=== PATIENT | female | born 1940 | race Caucasian/White ===

== ENCOUNTER → 2017-02-27 | Outpatient (CLI) | payer OTHER | LOC: BMCIMAGING 10:27 | PROVIDERS: ATTEND Internal Medicine | DX: Z13.820 Encounter for screening for osteoporosis (principal); M85.80 Other specified disorders of bone density and structure, unspecified site ==

== ENCOUNTER → 2017-05-21 | Outpatient (CLI) | payer OTHER | LOC: FIMAGING 09:42 | PROVIDERS: ATTEND Internal Medicine | DX: Z12.31 Encounter for screening mammogram for malignant neoplasm of breast (principal); Z80.3 Family history of malignant neoplasm of breast | CPT/HCPCS: G0202 ==

== ENCOUNTER → 2017-05-21 | Outpatient (CLI) | payer OTHER | LOC: BHFA 10:45 | PROVIDERS: ATTEND Internal Medicine Cardiovascular Disease | DX: I35.1 Nonrheumatic aortic (valve) insufficiency (principal); I34.0 Nonrheumatic mitral (valve) insufficiency ==

== ENCOUNTER 2017-11-15 10:36 | Observation (INO) | payer OTHER ==
--- NOTE | 2017-11-15 10:48 | CPEKG ---
Heart Rate: 57 RR Interval: 1053 P-R Interval: 172 QRSD Interval: 78 QT Interval: 432 QTC Interval: 421 P Cashiers: 66 QRS Cashiers: 16 T Wave Cashiers: 74 EKG Severity - NORMAL ECG - EKG Impression: SINUS RHYTHM Electronically Signed By: Juana Mercer 15-Nov-2017 16:26:23
[2017-11-15] MEDS ORDERED: NS 1,000 ML IV ONE (10:50)
--- NOTE | 2017-11-15 10:56 | EDPHY ---
H & P Stated Complaint: syncope x2 Source: Patient, RN/MD, EMS Exam Limitations: No limitations - Personal History Current Tetanus/Diphtheria Vaccine: Yes Current Tetanus Diphtheria and Acellular Pertussis (TDAP): Yes - Medical/Surgical History Hx Asthma: No Hx Chronic Respiratory Disease: No Hx Diabetes: No Hx Cardiac Disease: No Hx Renal Disease: No Hx Cirrhosis: No Hx Alcoholism: No Hx HIV/AIDS: No Hx Splenectomy or Spleen Trauma: No Other PMH: PMH: low BP, "leaky heart valve". - Social History Smoking Status: Never smoked Time Seen by Provider: 11/15/17 10:52 HPI/ROS: HPI: Chief Complaint: Syncope and collapse x2 Location:body Quality: Syncope Duration: Prior to right Signs and Symptoms: No fever, + dizziness, no cough, no chest pain, no shortness of breath, no palpitation, no abdominal pain, no nausea, no vomiting Timing: Acute, occurred 2 times, lasting several seconds Severity: Moderate Context: Patient presents via EMS with witnessed syncope and collapse x 2 [place]. She reports that she remembers pain the paginator and then waking up and sitting in a chair and being confused. She said after of few minutes and felt better. She then walked around, started to feel lightheaded and dizzy like she was in a fog, and then had a witnessed episode as well. Patient is unsure of how long the syncopal episodes lasted. Reports that she ate breakfast today but probably not as much as that she should up. She has a "leaky valve disorder" that she follows with Dr. Cesilia Conway; recently saw her and had an echocardiogram performed and per patient noted some changes but was advised that she could come back in 1 year for a checkup. She has no history of acute myocardial infarction/CVA. She reports that she feels fine and has no complaints currently. EMS gave patient aspirin on route and telemetry noted V1 T depression, nonspecific ST changes in leads V2 and V3. Modifying Factors: None Comment: ROS: see HPI Constitutional: No fever, no chills, no weight loss Eyes: No blurred vision Respiratory: No shortness of breath, no cough Cardiovascular: No chest pain Gastrointestinal: No nausea, no vomiting, no diarrhea Genitourinary: No dysuria Extremities: No myalgias Neurologic: No weakness, no numbness Skin: No rashes Hematologic: No bruising, no bleeding MEDICAL/SURGICAL/SOCIAL HISTORY: Medical history: Low blood pressure and leaky heart valve Surgical history: Denies Social history: Retired. Active lifestyle. Family history noncontributory CONSTITUTIONAL: Extremely pleasant, appears younger than stated age, elderly white female, awake and alert, no obvious distress HEENT: Atraumatic and normocephalic, PERRL, EOMI. Tympanic membranes clear. Oropharynx clear, no exudate and moist pink mucosa. Airway patent. No lymphadenopathy. No meningismus. No carotid bruits. Cardiovascular: Normal S1/S2, regular rate, regular rhythm, without murmur rub or gallop. PULMONARY/CHEST: Symmetrical and nontender. Clear to auscultation bilaterally. Good air movement. No accessory muscle usage. ABDOMEN: Soft, nondistended, nontender, no rebound, no guarding, no peritoneal signs, no masses or organomegaly. No CVAT. EXTREMITIES: 2/2 pulses, strength 5/5, no deformities, no clubbing, no cyanosis or edema. NEUROLOGICAL: no focal neuro deficits. GCS 15. Cranial nerves 2-12 grossly intact. SKIN: Warm and dry, no erythema. no rash. Good capillary refill. (Carol Melara) Constitutional: Initial Vital Signs Temperature (C) 36.5 C 11/15/17 10:43 Heart Rate 78 11/15/17 10:43 Respiratory Rate 12 11/15/17 10:43 Blood Pressure 131/62 H 11/15/17 10:43 O2 Sat (%) 94 11/15/17 10:43 O2 Delivery Mode Room Air Allergies/Adverse Reactions: No Known Allergies Allergy (Unverified 11/15/17 10:46) Home Medications: Medication Instructions Recorded Acetaminophen [Tylenol 325mg (*)] 325 mg PO DAILY PRN 11/15/17 Aspirin [Aspirin 325 mg (*)] 325 mg PO Q2D 11/15/17 Cholecalciferol Vit D3 [Vitamin D3 1,000 units PO DAILY 11/15/17 (*)] Compounded Testosterone Crm 1 sohail TP DAILY 11/15/17 Estradiol [Vivelle-Dot 0.05MG (*)] 0.05 mg TD TuFr@0800 11/15/17 Gabapentin [Neurontin 100 MG (*)] 100 mg PO HS 11/15/17 Herbals/Supplements -Info Only 1 ea PO DAILY 11/15/17 Imipramine HCl 5 mg PO DAILY 11/15/17 Melatonin [Melatonin 3 MG (*)] 3 mg PO HS 11/15/17 Sertraline HCl [Zoloft 100mg (*)] 100 mg PO DAILY 11/15/17 Medical Decision Making ED Course/Re-evaluation: EKG, head CT scan, labs, IV fluids ordered Given 1 L normal saline and IV Zofran Chart review; unable to pull up echocardiogram report. 1110: FSBS 85. EKG upon arrival shows flattened T-wave in V1; nonspecific ST changes in V2 V3 Head CT scan my read shows no acute intracranial process; mild atrophy consistent with age Labs reviewed; unremarkable troponin. No signs of anemia/acute kidney injury/ electrolyte imbalance/elevated LFTs ED decision to consult for admission. History of valvular disease with concern for EKG changes and known valve disease. This patient was seen under the supervision of my secondary supervising physician. I evaluated care for this patient independently. Discussed this patient with Dr. Mercer who did see the patient. (Carol Melara) Differential Diagnosis: Syncope including but not limited to vasovagal syncope, arrhythmia, dehydration , and blood loss. (Carol Melara) Other Provider: I have evaluated and participated in the management of this patient. My co- signature indicates that I have reviewed this chart and that I agree with the findings and the plan of care as documented. My personal history and physical findings include: This is a generally healthy 76-year-old female who had 2 witnessed syncopal episodes while buying lumbar. No seizure activity was noted. She did not injure herself, as she was lowered to the ground both times. No preceding chest pain. She does describe feeling extremely weak prior to both episodes. No recent illnesses. On examination she is awake and alert. Head is normocephalic atraumatic. Neck is nontender to palpation over the cervical spine. Lungs are clear to auscultation. Heart is regular rate and rhythm. Neurologically she is oriented to person, place, time, and situation. JEANIE. EOMI. Facial expression symmetric. Tongue midline. Moving all 4 extremities easily and equally. I reviewed her EKG. I have reviewed her laboratory studies. I agree with hospitalization and continued cardiac monitoring. She has no history of cardiac arrhythmia and none has been noted in the emergency department. I do not suspect an acute coronary syndrome. There is nothing to suggest blood loss her dehydration. Vasovagal syncope is a possibility and her prodrome suggest that this might be the case. (Juana Mercer) - Data Points Laboratory Results: Laboratory Results 11/15/17 10:35 11/15/17 10:35 11/15/17 10:58 POC Glucose 85 mg/dL mg/dL (70-100) Medications Given: Gabapentin (Neurontin) 100 mg PO HS SUNNI Stop: 05/14/18 20:59 Last Admin: 11/15/17 19:49 Dose: 100 mg Melatonin (Melatonin) 3 mg PO HS SUNNI Stop: 05/14/18 20:59 Last Admin: 11/15/17 19:49 Dose: 3 mg Discontinued Medications Sodium Chloride (Ns) 1,000 mls @ 0 mls/hr IV ONCE ONE; Wide Open PRN Reason: Protocol Stop: 11/15/17 10:51 Last Admin: 11/15/17 11:52 Dose: 1,000 mls Ondansetron HCl (Zofran) 4 mg IVP EDNOW ONE Stop: 11/15/17 10:59 Last Admin: 11/15/17 11:53 Dose: Not Given Point of Care Test Results: 11/15/17 10:58 POC Glucose 85 Departure - Departure Disposition: [facility] [place] Inpatient Acute Clinical Impression: Syncope and collapse, Acute electrocardiogram changes, Valvular heart disease Condition: Fair
[2017-11-15] MEDS ORDERED: ONDANSETRON 4 MG/2 ML VIAL IVP ONE (10:58)
[2017-11-15 10:59] LABS: PLATELET COUNT 269 10^3/uL (150-400)
[2017-11-15 11:15] LABS: INR 1.03 (0.83-1.16); PROTIME(PATIENT) 13.7 SEC (12.0-15.0)
[2017-11-15] MEDS ORDERED: ACETAMINOPHEN 325 MG TAB PO PRN (12:47)
[2017-11-15] MEDS ORDERED: ONDANSETRON 4 MG/2 ML VIAL IVP PRN (12:47)
[2017-11-15] MEDS ORDERED: ONDANSETRON DISINTEGRATING 4 MG TAB PO PRN (12:47)
--- NOTE | 2017-11-15 13:28 | GHP ---
[f rep st] HISTORY AND PHYSICAL DATE OF ADMISSION: 11/15/2017 HISTORY OF PRESENT ILLNESS: The patient is a pleasant 76-year-old female with a history of regurgita nt valves, who was purchasing some lumber today when she had a syncopal episode. She was loading dana e lumber, during which time she had no dyspnea, no chest pain, no other symptoms. She was standing i n line to pay for it when she felt lightheaded and dizzy and sat down. Then she recalls waking up, a nd then she was walking, and she had a second episode of passing out. She has not had antecedent herberth st pain. She has had no recent nausea, vomiting, diarrhea. She does not have a history of coronary disease. She is followed by Dr. Conway for regurgitant valvular lesion; she was not sure which. She does not vieira ve heart failure. She has no orthopnea or lower extremity edema. She has not had fever, chills, pino sea, vomiting, diarrhea. She did not have palpitations prior to, during, or after her syncope. She has no prior episodes of s yncope, except for 1 many years ago, with what sounds like a benign workup. REVIEW OF SYSTEMS: A complete 10-point review of systems was conducted, negative, except as noted in the HPI. PAST MEDICAL HISTORY: She has moderate MR, moderate TR, moderate aortic regurgitation. She has art model bradford kidney disease with a baseline creatinine of about 1.1. She has low back pain. ALLERGIES: Penicillins. HOME MEDICATIONS: Tylenol, aspirin, vitamin D3, testosterone cream, estradiol, gabapentin, imipramin e, melatonin, sertraline. SOCIAL HISTORY: She is originally from the [facility], lived in [place] before moving to the [facility] Nonsmoker, nondrinker. FAMILY HISTORY: Notable for cancers. PHYSICAL EXAMINATION: VITAL SIGNS: Temp 36.5, blood pressure 131/60, pulse 78, breathing 12 times a minute, 94% on room air. Orthostatic vital signs are negative. GENERAL: No acute distress. HEENT : Sclerae anicteric. Oropharynx clear. Mucous membranes are moist. NECK: Supple, without lymphad enopathy or JVD. LUNGS: Clear to auscultation bilaterally. HEART: S1, S2. ABDOMEN: Soft, nonten joey, nondistended. LOWER EXTREMITIES: Without edema. Calves are nontender. SKIN: Without rash. NEUROLOGIC: Exam is nonfocal. LABORATORY DATA: Chem-7 is normal, other than a creatinine of 1.1. LFTs normal. Troponin less than 0.012. Coags normal. CBC is normal. EKG interpreted by me shows sinus at 57, with normal axis and intervals. There are no ST or T-wave changes, and this is similar to the rhythm strip that was pres ent from EMS. Noncontrast head CT is unremarkable. I discussed the case with Dr. Juana Mercer and her outpatient pharmaceutical worker, Dr. Cesilia Conway. ASSESSMENT/PLAN: This is a 76-year-old female who presents with syncope. 1. Syncope. This is sort of a benign-sounding history, although it does not clearly fit the descrip tion of a vasovagal. The presence of a prodrome argues against malignant arrhythmia. I think she is not in congestive heart failure and does not appear consistent with acute coronary syndrome. At thi s point in time, I think it is reasonable to cycle her troponins and follow her on telemetry. I do n ot think a stress test is warranted. At this time, she has a history of a negative stress test in past. Her last echo was in June, was showing moderate valvular lesions. I think repeat echo is not indicated. 2. Pulmonary embolism. This is considered, but given the absence of tachycardia, chest pain or hypo fara, will follow. 3. Low back pain. Continue her outpatient medication regimen. 4. Valvular lesions. She can continue to follow up with Dr. Conway as an outpatient. 5. Prophylaxis. Pharmacologic prophylaxis is indicated if in the hospital longer than 24 hours. Fo r now, will proceed with just low-molecular weight heparin. 6. Disposition. Observation. /[id number]/MODL
[2017-11-15] MEDS ORDERED: MELATONIN 3 MG TAB PO SCH (21:00)
[2017-11-15] MEDS ORDERED: GABAPENTIN 100 MG CAP PO SCH (21:00)
[2017-11-16 04:50] VITALS: TEMP 98.2
[2017-11-16 07:50] VITALS: BP 109/69; PULSE 71; RESP 18; O2SAT 96
[2017-11-16] MEDS ORDERED: Herbals/Supplements -Info Only PO SCH (09:00)
[2017-11-16] MEDS ORDERED: [UNRECOGNIZED DRUG - OTHER] TP SCH (09:00)
[2017-11-16] MEDS ORDERED: CHOLECALCIFEROL VIT D3 1,000 UNITS TAB PO SCH (09:00)
[2017-11-16] MEDS ORDERED: SERTRALINE HCL 100 MG TAB PO SCH (09:00)
[2017-11-16] MEDS ORDERED: IMIPRAMINE HCL PO SCH (09:00)
--- NOTE | 2017-11-16 11:18 | HOSPPROG ---
Hospitalist Progress Note Assessment/Plan: 76 yo F w AR, MR, TR admitted w syncope neg workup home see dc summary Subjective: no events telemetry. no complaints Objective: Vital Signs Temp Pulse Resp BP Pulse Ox 36.8 C 71 18 109/69 96 11/16/17 07:46 11/16/17 07:46 11/16/17 07:46 11/16/17 07:46 11/16/17 07:46 11/15/17 11/16/17 11/17/17 05:59 05:59 05:59 Intake Total 1880 Output Total 1200 Balance 680 PT 13.7 SEC (12.0-15.0) 11/15/17 10:35 INR 1.03 (0.83-1.16) 11/15/17 10:35 - Physical Exam Constitutional: no apparent distress, appears nourished Eyes: PERRL, anicteric sclera Ears, Nose, Mouth, Throat: moist mucous membranes, hearing normal Cardiovascular: regular rate and rhythym, no murmur, rub, or gallop, No systolic murmur, No irregularly irregular Respiratory: no respiratory distress, no rales or rhonchi Gastrointestinal: normoactive bowel sounds, soft, non-tender abdomen Genitourinary: no bladder fullness Skin: warm Musculoskeletal: full muscle strength ICD10 Worksheet Patient Problems: Problems Problem Status Onset Acute electrocardiogram changes Acute Syncope and collapse Acute Valvular heart disease Acute
--- NOTE | 2017-11-16 11:41 | GDS ---
[f rep st] DISCHARGE SUMMARY DISCHARGE DIAGNOSES: 1. Syncope, likely vasovagal. 2. Mild chronic kidney disease. 3. Mild aortic insufficiency with mitral regurgitation and tricuspid regurgitation as well. HOSPITAL COURSE: Please see admission history and physical by Dr. Markie Cervantes. The patient prese nted with syncope that had a prodrome. It did not exactly sound like a vasovagal in so much as there was a clear stimulus, however the rest of it sort of followed that. She had an elevated creatinine of 1.1, which is her baseline. She had serial negative troponins, nonischemic EKG. No events on tel emetry. She had a recent echocardiogram. The patient is clinically not in heart failure. She is di scharged home on for followup. I did relay the events of the case to her outpatient surgical supplies sterilizer Dr. Conway, who agrees with the plan. /[id number]/MODL
--- NOTE | 2017-11-16 13:48 | ASMTLACE ---
LACE Length of stay for Answers: Less than 1 day current admission Acuity / Level of Answers: No Care: Did the patient have an inpatient admission? # of Emergency department Answers: 1-2 visits in the last 6 months Score: 1 Date Signed: 11/16/2017 01:47 PM Electronically Signed By:CHARLES Barksdale
--- NOTE | 2017-11-16 15:41 | ASDISCHSUM ---
Discharge Information Plan Status:Home with No Needs Medically Cleared to Leave:11/15/2017 Discharge Date:11/16/2017 11:57 AM CM D/C Disposition:Home, Routine, Self-Care ADT D/C Disposition:Home, Routine, Self-Care Projected Discharge Date:11/16/2017 11:57 AM Transportation at D/C:Family Discharge Delay Reason: Follow-Up Date:11/16/2017 11:57 AM Discharge Slot: Final Diagnosis: Placement Information Patient Contact Information Contact Name:TIA Relationship:Life Partner Address:[address] Work Phone: City:[place] Alternate Phone: [facility]/Zip Code:[place] [address] Email: Financial Information Financial Class:Medicare Primary Plan Desc:MEDICARE OUTPATIENT Primary Plan Number:[id number] Secondary Plan Desc:[facility] Secondary Plan Number:[id number] Assessment Information Case Management Discharge Plan Note Case Management Discharge Discharge Order Complete? Answers: Yes Patient to Obtain Answers: via Family Medications Transportation Arranged Answers: Family/Friends Discharge Comments Notes: Pt was admitted with syncope and discharging home today with no CM needs. She will follow up with outpt cardiology. Pt here less than 24 hrs. Date Signed: 11/16/2017 01:45 PM Electronically Signed By:CHARLES Barksdale LACE LACE Length of stay for Answers: Less than 1 day current admission Acuity / Level of Answers: No Care: Did the patient have an inpatient admission? # of Emergency department Answers: 1-2 visits in the last 6 months Score: 1 Date Signed: 11/16/2017 01:47 PM Electronically Signed By:Vandana Bay, [employer] ANALYST Intervention Information
[2017-11-17] MEDS ORDERED: ASPIRIN 325 MG TAB PO SCH (09:00)
[2017-11-19] MEDS ORDERED: ESTRADIOL VIVELLE 0.05 MG PATCH TD SCH (08:00)
== END 2017-11-16 11:57 | disposition home or self-care (01) ==
LOC: EDUNIT# → INTOOBSV 11:27 → F2W 13:20
PROVIDERS: ADMIT Internal Medicine; ATTEND Internal Medicine
DX: R55 Syncope and collapse (principal); N18.9 Chronic kidney disease, unspecified; I08.1 Rheumatic disorders of both mitral and tricuspid valves; M54.5 Low back pain
CPT/HCPCS: 70450; 93005; 96360; 99285; G0378

== ENCOUNTER → 2018-08-28 | Outpatient (CLI) | payer OTHER | LOC: BHFA 10:45 | PROVIDERS: ATTEND Internal Medicine Cardiovascular Disease | DX: I35.1 Nonrheumatic aortic (valve) insufficiency (principal); I34.0 Nonrheumatic mitral (valve) insufficiency; I07.1 Rheumatic tricuspid insufficiency ==

== ENCOUNTER → 2018-09-10 | Outpatient (CLI) | payer OTHER | LOC: FIMAGING 06:54 | PROVIDERS: ATTEND Family Medicine | DX: R10.31 Right lower quadrant pain (principal); R10.33 Periumbilical pain; I70.0 Atherosclerosis of aorta ==